=== PATIENT | female | born 1990 | race Caucasian/White ===

== ENCOUNTER 2019-12-09 09:58 | Day surgery (SDC) | payer OTHER ==
[~2019-12-09] VITALS: Ht 162.6 cm; Wt 63.5 kg
--- NOTE | 2019-12-09 10:45 | NUR ---
PT AMBULATED BACK TO ROOM FROM LOBBY AT THIS TIME.
[2019-12-09 10:52] LABS: BASOPHILS # (AUTO) 0.07 x10^3/uL (0-0.1); BASOPHILS % (AUTO) 1 % (0-1); EOSINOPHILS # (AUTO) 0.05 x10^3/uL (0-0.4); EOSINOPHILS % (AUTO) 1 % (1-7); LYMPHOCYTES # (AUTO) 1.78 x10^3/uL (1-3.4); LYMPHOCYTES % (AUTO) 17 % (22-44); MD NO; MEAN CORPUSCULAR HEMOGLOBIN 30.3 pg (27.0-34.8); MEAN PLATELET VOLUME 8.8 fL (7.4-10.4); MONOCYTES # (AUTO) 0.49 x10^3/uL (0.2-0.8); MONOCYTES % (AUTO) 5 % (2-9); NEUTROPHILS # (AUTO) 8.16 x10^3/uL (1.8-6.8); NEUTROPHILS % (AUTO) 77 % (42-75); PLATELET COUNT 231 x10^3/uL (130-400); RED BLOOD COUNT 5.13 x10^6/uL (3.82-5.3); RED CELL DISTRIBUTION WIDTH 12.9 % (9.6-15.2)
[2019-12-09 11:05] LABS: ALANINE AMINOTRANSFERASE 27 U/L (12-78); ALBUMIN 4.1 g/dL (3.4-5.0); ANION GAP 5 mmol/L (5-15); CALCIUM 9.1 mg/dL (8.5-10.1); CHLORIDE 110 mmol/L (98-107); CREATININE 0.85 mg/dL (0.55-1.02)
--- NOTE | 2019-12-09 11:06 | NUR ---
THIS IS A 29 YO F W/ C/O RLQ ABD PAIN 11/28 THAT STARTED MONDAY NIGHT. PT REPORTS PAIN WORSE W/ MOVEMENT. DENIES VOMITING. LAST PO FOOD LAST NIGHT, PO DRINK [phone]. PT RESTING ON [place] W/ CALL LIGHT IN REACH, CONNECTED TO MONITORING. SHAYNE MERLOS. AWAITING ED EVAL.
[2019-12-09 11:10] LABS: ALKALINE PHOSPHATASE 63 U/L (45-117); TOTAL PROTEIN 7.8 g/dL (6.4-8.2)
--- NOTE | 2019-12-09 11:10 | NUR ---
PER BHAVIK CASTILLO URINE COLLECTED AND SENT TO LAB.
[2019-12-09 11:29] LABS: MICROSCOPIC NOT IND
[2019-12-09] MEDS ORDERED: SODIUM CHLORIDE FLUSH 10ML SYR IVF ONE (12:00)
[2019-12-09] MEDS ORDERED: ONDANSETRON 2MG/ML, 2ML IVPush ONE (12:00)
[2019-12-09] MEDS ORDERED: HYDROmorphone 1 MG/ML, 1ML INJ ONE ×2 (12:06→13:32)
[2019-12-09] MEDS: HYDROmorphone 2 MG/ML, 1ML IVPush PRN ×2 (12:08→13:34)
--- NOTE | 2019-12-09 12:10 | NUR ---
PIV STARTED, PT MEDICATED PER EMAR.
--- NOTE | 2019-12-09 12:13 | NUR ---
PT TO CT.
[2019-12-09] MEDS ORDERED: ONDANSETRON 2MG/ML, 2ML ONE (12:21)
[2019-12-09] MEDS ORDERED: OMNIPAQUE 350 MG/ML, 100ML BOTTLE ONE (12:24)
[2019-12-09] MEDS ORDERED: SERT25TA3 PO (12:33)
--- NOTE | 2019-12-09 13:22 | NUR ---
RAPID COVID SWAB OBTAINED AND WALKED TO LAB. PT UPDATED ON POC FOR ADMIT.
[2019-12-09] MEDS ORDERED: CEFOTETAN PMX 1GM/50ML 50 ML ONE (13:28)
[2019-12-09 13:31] VITALS: BP 122/81
[2019-12-09] MEDS ORDERED: CHLORHEXIDINE 15 ML UDC MM ONE (14:00)
[2019-12-09] MEDS ORDERED: CEFOTETAN PMX 1GM/50ML 50 ML IV ONE (14:00)
--- NOTE | 2019-12-09 14:15 | NUR ---
REPORT GIVEN TO ALVIN CASTILLO. REPORTS OR WILL COME GET HER AT 1530.
[2019-12-09] MEDS ORDERED: SODIUM CHLORIDE FLUSH 10ML SYR IVF PRN (14:30)
[2019-12-09] MEDS ORDERED: BUPIVACAINE/PF-EPI 0.5% 1:200K ONE (15:50)
[2019-12-09] MEDS ORDERED: OXYcodone 5 MG/5 ML ORAL.SOL UDC PO PRN (16:00)
[2019-12-09] MEDS ORDERED: MEPERIDINE/PF 25MG/0.5ML IVPush PRN (16:00)
[2019-12-09] MEDS ORDERED: MIDAZOLAM 1 MG/ML, 2ML IV PRN (16:00)
[2019-12-09] MEDS ORDERED: HYDROmorphone 1 MG/ML, 1ML INJ IVPush PRN (16:00)
[2019-12-09] MEDS ORDERED: ALBUTEROL/IPRATROPIUM 2.5MG/0.5MG, 3 ML NPPB PRN (16:00)
[2019-12-09] MEDS ORDERED: KETOROLAC 30 MG/1 ML IVPush PRN (16:00)
[2019-12-09] MEDS ORDERED: ACETAMINOPHEN 325 MG TABLET PO PRN (16:00)
[2019-12-09] MEDS ORDERED: EPHEDRINE 50 MG/ML, 1ML IM PRN (16:00)
[2019-12-09] MEDS ORDERED: METHOCARBAMOL 1,000 MG in DEXTROSE 5% 100 ML IV PRN (16:00)
[2019-12-09] MEDS ORDERED: HYDROcodone/APAP 7.5-325MG/15ML UDC PO PRN (16:00)
[2019-12-09] MEDS ORDERED: ONDANSETRON 2MG/ML, 2ML IVPush PRN (16:00)
[2019-12-09] MEDS ORDERED: hydrALAzine 20 MG/ML, 1ML IV PRN (16:00)
[2019-12-09] MEDS ORDERED: LABETALOL 5MG/ML, 20ML IV PRN (16:00)
[2019-12-09] MEDS ORDERED: METOCLOPRAMIDE 5 MG/ML, 2ML IVPush PRN (16:00)
[2019-12-09] MEDS ORDERED: DIPHENHYDRAMINE 50 MG/ML, 1ML IVPush PRN (16:00)
[2019-12-09] MEDS ORDERED: EPHEDRINE 50 MG/ML, 1ML IVPush PRN (16:00)
[2019-12-09] MEDS ORDERED: LORazepam 2 MG/ML, 1ML IVPush PRN (16:00)
[2019-12-09] MEDS ORDERED: DIAZEPAM 5 MG/ML, 2ML IVPush PRN (16:00)
[2019-12-09] MEDS ORDERED: FENTANYL PF 100 MCG/2ML IV PRN (16:00)
[2019-12-09] MEDS ORDERED: HALOPERIDOL 5 MG/ML IV PRN (16:00)
[2019-12-09] MEDS ORDERED: PROPOFOL 10 MG/ML, 20ML ONE (16:12)
[2019-12-09] MEDS ORDERED: ROCURONIUM 10 MG/ML,10ML ONE (16:12)
[2019-12-09] MEDS ORDERED: GLYCOPYRROLATE 0.2MG/1ML, 5ML ONE (16:12)
[2019-12-09] MEDS ORDERED: FENTANYL PF 100 MCG/2ML ONE ×2 (16:12→17:13)
[2019-12-09] MEDS ORDERED: DEXAMETHASONE 4 MG/ML, 1ML ONE (16:12)
[2019-12-09] MEDS ORDERED: CEFAZOLIN 1,000 MG ONE (16:12)
[2019-12-09] MEDS ORDERED: OXYcodone 5 MG/5 ML ORAL.SOL UDC ONE (17:13)
== END 2019-12-09 18:38 | disposition home or self-care (01) ==
LOC: ED 11:07 → EDIP 14:07 → UNDOADMIN 14:07 → OUT 16:50
PROVIDERS: ATTEND Emergency Medicine
DX: K35.80 Unspecified acute appendicitis (principal); Z11.59 Encounter for screening for other viral diseases; N83.201 Unspecified ovarian cyst, right side; F43.10 Post-traumatic stress disorder, unspecified; Z79.899 Other long term (current) drug therapy; Z91.040 Latex allergy status; Z91.048 Other nonmedicinal substance allergy status
CPT/HCPCS: 36415; 44970; 74177; 80053; 81003; 83690; 84703; 85025; 87635; 88304; 96365; 96375; 96376; 99285; J0690; J1100; J1170; J2405; J2704; J3010; J3490; Q9967

== ENCOUNTER 2021-02-17 12:06 | Emergency (ER) | payer OTHER ==
[~2021-02-17] VITALS: Ht 162.6 cm; Wt 65.6 kg
[2021-02-17 12:10] VITALS: BP 114/82
== END 2021-02-17 14:48 | disposition home or self-care (01) ==
LOC: ED 14:00
DX: O20.0 Threatened abortion (principal); Z3A.10 10 weeks gestation of pregnancy